=== PATIENT | male | born 1950 | race Caucasian/White ===

== ENCOUNTER 2022-11-26 11:45 | Emergency (ER) | payer MEDICARE, SELFPAY ==
[2022-11-26 11:45] VITALS: BP 144/85; PULSE 59; RESP 18; TEMP 35.8; O2SAT 98; BMI 24.3
--- NOTE | 2022-11-26 11:56 | RAD_ITS ---
STUDY: X-RAY - LEFT HAND, ATTENTION LEFT THUMB. REASON FOR EXAM: Male, 72 years old. Left thumb trauma and laceration TECHNIQUE: 3 view(s) of the finger were obtained. COMPARISON: None. FINDINGS: Normal metacarpal head. Normal metacarpophalangeal joint. Normal proximal phalanx. Normal distal phalanx. Normal distal interphalangeal joint. Soft tissue laceration. RAD/Finger(s) Min 2 Views IMPRESSION: Soft tissue laceration. No fracture is seen. Electronically Signed: Cesario Desai MD at 12:51 EDT ,
--- NOTE | 2022-11-26 11:57 | EDS_ITS ---
HPI History of Present Illness HPI Narrative: Left thumb laceration on a wood splitter. Chief Complaint: Laceration Informant: patient and family Occured/Mechanism Mechanism/Context: Yes injury and Yes blunt trauma Onset/Context/Timing Onset: Today and Hours Context: Sudden Onset Timing: Continuous Quality of Pain: Dull and Aching Current Severity: Moderate Maximum Severity: Moderate Associated Symptoms Associated Symptoms: Negative for Parasthesia, Weakness or Loss of Funtion Narrative Narrative: 72-year-old male history of Parkinson's disease and hypertension. He is on aspirin but no other blood thinners. Was splitting wood today at his son's home and got his left thumb caught in the wood splitter causing a laceration over the dorsum of the thumb from his proximal phalanx ulnarly through the nail. Last tetanus was more than 10 years ago. He denies any other injuries. Tetanus Immunization: >10 years Prior similar symptoms: No Recent Illness/Hospitalization: No PFSH PFSH Medical History Parkinson disease Home Medications atenolol 25 mg tablet 25 mg PO DAILY 11/26/22 [History Last Taken Unknown] carbidopa 10 mg-levodopa 100 mg tablet (Sinemet) 1 tab PO TID 11/26/22 [History Last Taken Unknown] cephalexin 500 mg capsule 500 mg PO Q6 7 days #28 CAPSULES 11/26/22 [Rx Last T aken Unknown] hydrocodone-acetaminophen 5-325mg 5mg-325mg 1 tab PO Q4H PRN pain 5 days #20 tabs 11/26/22 [Rx Last Taken Unknown] Allergy/AdvReac Type Severity Reaction Status Date / Time No Known Allergies Allergy Verified 11/26/22 11:48 Surgical History H/O rhinoplasty Social History Smoking Status: Current every day smoker tobacco type: smokeless tobacco ROS ROS ED ROS Narrative No recent illness. Review of Systems ROS Unobtainable: Denies due to encephalopathy Constitutional Constitutional ED: Denies chills or fever(s) Eyes Eyes: Denies blurry vision ENT ENT ED: Denies ear pain Cardiovascular Cardiovascular: Denies chest pain Respiratory/Chest Respiratory/Chest: Denies cough or dyspnea Gastrointestinal Gastrointestinal: Denies abdominal pain Genitourinary Genitourinary ED: Denies dysuria Musculoskeletal Musculoskeletal: Denies back pain Integumentary Denies abscess Neurologic Neurologic: Denies headache(s) Psychiatric Psychiatric: Denies anxiety Endocrine Endocrinology: Denies cold intolerance Hematologic/Lymphatic Hematologic/Lymphatic: Denies easy bleeding Allergic/Immunologic Allergic/Immunologic ED: Denies mouth swelling or tongue swelling EXAM Physical Exam Narrative Exam Narrative: 72-year-old male vital signs stable afebrile. HEENT exam unremarkable atraumatic. Neck nontender. Lungs clear. Heart regular rhythm rate about 60 no murmur. Chest wall and ribs nontender. Back nontender. Abdomen soft nontender. Moving all 4 extremities. Neurovascular intact. Left hand specifically the left thumb he has a laceration involving the skin and subcu tissue from his proximal phalanx all the way down the middle of the dorsum of his left thumb through the nail. He is able to do full extension. He is able to do flexion. He has normal touch sensation and cap refill. Mild bleeding. N o pulsatile bleeding. Rest of the hand is unremarkable nontender. No gross bony deformity. Neurologically he is awake and alert with no focal motor deficits. Const Vital Signs: 11/26/22 11:45 Temperature 96.5 F L Temperature Source Temporal Pulse Rate 59 L Respiratory Rate 18 Blood Pressure 144/85 H Blood Pressure Mean 104 Pulse Ox 98 Oxygen Delivery Method Room Air Positive well nourished and well developed; Negative for cachectic, contractures or unkempt General Appearance ED: well developed and NAD; Negative for unkempt, cachectic, contractures, cyanotic or diaphoretic Nutritional Appearance: Negative for cachectic HEENT Reports moist mucous membranes normocephalic and atraumatic; Negative for trauma or tenderness Eyes PERRL and EOMs intact bilaterally General Eye ED: Negative for other Neck full ROM and supple General: Negative for tenderness Lymph Lymphatic: Negative for other Chest Wall inspection of chest normal Resp normal respiratory effort and clear to auscultation bilaterally Effort and Inspection: Negative for pain with movement Auscultation: Negative for rales, rhonchi or wheezes Cardio regular rate, regular rhythm, S1 normal heart sound, S2 normal heart sound and no murmurs GI non-tender, non-distended and no masses Inspection: Negative for abdominal distention Auscultation: normoactive bowel sounds Palpation: soft; Negative for tender or guarding Bladder / Kidney Exam: No other Back/Spine no CVA tenderness General Back: Negative for CVA tenderness Cervical Spine: Negative for cervical spine tenderness Thoracic Spine / Upper Back: Negative for thoracic spinal tenderness Lumbar Spine / Lower Back: Negative for lumbar spinal tenderness Extremity normal to inspection and full ROM Extremity Narrative: Except, laceration to the dorsum of the left thumb from the proximal phalanx all the way down the middle portion of the back of the thumb through his nail. Involves the skin and subcu tissue. He is able to do 180 degrees of extension. He can do flexion. He has normal touch sensation and cap refill in the thumb. There is no gross bony deformity. He does have tenderness. There is no signs of infection or any obvious foreign body. This will definitely need repaired. General Extremety ED: Negative for edema General Extremity: Negative for edema Neuro oriented x3, CN's II-XII intact bilaterally, moves all extremities, no focal motor deficits and no sensory deficits noted Sensorium / Orientation: alert, oriented to person, oriented to place and oriented to time; Negative for orientation impaired, lethargic, stuporous or other Motor Exam: strength 5/5 throughout Psych mental status grossly normal Appearance: Negative for unkempt Attitude: No agitated Mood & Affect: Negative for depressed, anxious or tearful Skin General Skin Exam: Negative for petechiae Lesions: no lesions Rashes: no rashes Trauma: laceration; Negative for no lacerations or abrasions or abrasion MDM MDM MDM Narrative Medical decision making narrative: 72-year-old male with a significant left thumb laceration which will need repaired. X-ray will be obtained. Digital block performed. Explored. Washed with Shur-Clens and irrigated with saline. Closed using 4-0 Ethilon. Will be evaluated for any tendon injury or joint involvement. Tetanus to be updated. History & Record Review Discussion w/independent historian: Patient and Family Procedures Lacerations Left thumb laceration repair:: Length: 3 in Depth: Sub Q Shape: Linear Prep: Shure-Clens Laceration repair: Digital block, Irrigated, Lidocaine and Skin sutures Suture Information: Ethilon, Simple and 4-0 Comment: Dorsum of left thumb laceration down the middle portion of the thumb from the proximal phalanx through the nail. Neurovascular intact. Involves the skin and subcu tissue. Full flexion and extension. Normal cap refill. Locally anesthetized with a digital block of lidocaine. Once proper anesthesia was obtained cleaned with Shur-Clens washed and irrigated with saline. Explored. Foreign body. There is a partial laceration of the extensor tendon of the thumb involves about 30%. He does still help ever have good extension against resistance. There is no loss of function or range of motion. I did discuss have the patient and his . He was also locally anesthetized even after the digital block. The wound was cleaned with iodine. Late washed with saline and irrigated with saline. The laceration was closed using 10 simple erupted 4-0 Ethilon sutures. Proper hemostasis and wound closure is obtained. He also had a laceration through the midportion of the thumbnail. We discussed treatment options he did not want me to remove that. Nurses will clean and dress the wound. Tetanus will be updated. He will be placed on Keflex 504 times a day. [place] for pain. Ice and elevate. And follow-up with local orthopedics for further evaluation. Discharge Plan Triage Chief Complaint: Laceration ED Provider: Carl Healy Dx/Rx/DC Orders Clinical Impression: Laceration of thumb, Extensor tendon laceration of finger with open wound Instructions: ED Laceration, Hand: All Closures, ED Tendon Laceration Prescriptions: New cephalexin 500 mg capsule 500 mg PO Q6 7 Days Qty: 28 0RF hydrocodone-acetaminophen 5-325 mg tablet 1 tab PO Q4H PRN (Reason: pain) 5 Days Qty: 20 0RF No Action atenolol 25 mg Tablet 25 mg PO DAILY carbidopa-levodopa [Sinemet] 10-100 mg Tablet 1 tab PO TID Primary Care Provider: Johny Degroot Referrals: Dylon Valenzuela DO [Med Staff - Active Staff] - As soon as possible NOT,DEFINED [Non-Staff] - Activity Restrictions/Additional Instructions: I left to decrease pain and swelling. 5 times a day for 30 minutes each time. Motrin for pain and swelling. [place] for more severe pain. If you do not use the [place] you can use Tylenol if you use the [place] to use any Tylenol with it because it has Tylenol in it. Plenty of fruits and vegetables and fiber to prevent constipation. The pain medication can cause constipation. You may need a stool softener. Do not drink alcohol or drive while using the pain medication. The antibiotic, Keflex, 4 times a day to prevent infection. The laceration involves the outside of your thumb and also the extensor tendon. Hopefully this will heal up and you will need any further surgery at the current time you have normal range of motion your thumb. I spoke to the orthopedic physician on-call Dr. Valenzuela and you can follow-up with him in the office. Keep this dry and clean. Our dressing can stay on the next 3 to 4 days after that need to take it off daily clean it with soap and water dry it thoroughly and apply antibiotic ointment. Return if any signs of infection such as pus, fever, redness streaks or masses swelling. Disposition Disposition: Home, Self Care
[2022-11-26] MEDS: Lidocaine 1% (20 ml mdv) 20 ML Vial INFILT (12:06)
[2022-11-26] MEDS: Diphth,Pertuss(Acell),Tet Vac 0.5 ML Vial IM (12:07)
[2022-11-26] MEDS: HYDROcodone Bitartrate/Apap 5/325 Tablet PO (13:27)
--- NOTE | 2022-11-26 13:36 | ED.RN ---
Dr. Healy removed aluminum splint and gauze that would was originally dressed with and placed a temporary splint.
--- NOTE | 2022-11-26 14:45 | ED.RN ---
Spouse called back stating [facility] in [place] does not have [address] available. Per call to [facility], pharmacist states [address] is available. Prescribing ED provider notified, he will change order. Call placed to Pt's spouse Madonna to update. She voices understanding.
== END 2022-11-26 13:37 | disposition home or self-care (01) ==
PROVIDERS: Emergency Provider Emergency Medicine; PCP Preventive Medicine Occupational Medicine; Visit Provider Emergency Medicine
DX: S66.222A Laceration of extensor muscle, fascia and tendon of left thumb at wrist and hand level, initial encounter (principal); G20 Parkinson's disease; S61.112A Laceration without foreign body of left thumb with damage to nail, initial encounter; W31.2XXA Contact with powered woodworking and forming machines, initial encounter; Z23 Encounter for immunization; I10 Essential (primary) hypertension; Z79.82 Long term (current) use of aspirin; Z79.899 Other long term (current) drug therapy; F17.220 Nicotine dependence, chewing tobacco, uncomplicated
CPT/HCPCS: 12004; 73140; 90715; 99284

== ENCOUNTER → 2025-02-09 | Outpatient (CLI) | payer MEDICARE, SELFPAY ==
--- NOTE | 2025-02-09 10:12 | MRI_ITS ---
PROCEDURE: BRAIN WITHOUT CONTRAST 02/09/2025 REASON FOR EXAM: NEURODEGENERATIVE DISORDER Neurodegenerative disorders. History of Parkinson. Multiple falls. TECHNIQUE: Procedure Code: MRIBR Modality: MR Procedure: BRAIN WITHOUT CONTRAST Multiplanar and multisequence images were obtained. COMPARISON: No prior studies available for comparison. FINDINGS: Brain: Mild diffuse atrophy. No acute intracranial hemorrhage midline shift or mass effect. Few scattered T2 signal hyperintensities on FLAIR in the frontal lobes and parietal lobes, nonspecific. These are likely related to small-vessel ischemic changes. No edema or intra-axial mass. No restricted diffusion. No restricted diffusion to suggest acute ischemia. No acute intracranial hemorrhage. Orbits and pituitary fossa appear unremarkable. Ventricles: Normal Major Intracranial Vessels: Normal flow voids Sinuses: Clear. Mastoids: Clear Unremarkable appearance of the skull. Sebaceous cysts noted in the right posterior periauricular soft tissues. MRI/Brain without Contrast IMPRESSION: Mild atrophy and small-vessel ischemic changes. No acute intracranial abnormality. Reading Location: [id number]
== END | disposition home or self-care (01) ==
PROVIDERS: PCP Student in an Organized Health Care Education/Training Program
DX: G20.A1 Parkinson's disease without dyskinesia, without mention of fluctuations (principal); G62.9 Polyneuropathy, unspecified; R26.89 Other abnormalities of gait and mobility; R42 Dizziness and giddiness
CPT/HCPCS: 70551